=== PATIENT | male | born 1980 | race Caucasian/White ===

== ENCOUNTER 2016-06-28 16:59 | Emergency (ER) ==
[2016-06-28 17:12] VITALS: BP 145/87
--- NOTE | 2016-06-28 17:37 | PROVIDER DOCUMENTATION ---
HPI-Musculoskeletal Pain/Inj - GENERAL Source: patient - HX OF PRESENT ILLNESS-MUSKULOSKELTAL Quality of Pain: reports: aching Severity in ED: moderate Onset/Duration: 3 days ago Timing: still present Any recent injury?: No Locality of Occurance: Home Similar Symptoms Previously?: Yes Recently seen or treated by another doctor?: Yes <Italo Arnett - Last Filed: 06/28/16 17:33> <Domonique Viramontes - Last Filed: 06/28/16 17:50> - GENERAL Chief Complaint: General Adult Stated Complaint: MUSCLE SPASMS,BRUISING Time Seen by Provider: 06/28/16 17:34 - HX OF PRESENT ILLNESS-MUSKULOSKELTAL Nature of Presenting Problem: Reports left inner thigh cramps on Monday through monday went to ER in [place] [facility] were good reports this morning noticed left inner thigh ecchymosis reports looked at it and told him that it was just bruising no Blood clots were involved. Denies any trauma or injury. Takes tylenol and aspirin daily. (Italo Arnett) Review of Systems - Adult - REVIEW OF SYSTEMS - ADULT Constitutional: denies: chills, fever, fatique Eyes: reports: no symptoms reported Ears, Nose, Mouth & Throat: denies: ear pain, sinus problem, throat pain Cardiovascular: reports: no symptoms reported Respiratory: reports: no symptoms reported Gastrointestinal: reports: no symptoms reported Genitourinary: reports: no symptoms reported Musculoskeletal: reports: see HPI, muscle aches, other (ecchymosis left innter thigh). denies: joint pain, joint swelling Integumentary: reports: no symptoms reported Neurological: reports: no symptoms reported Psychiatric: reports: no symptoms reported Endocrine: reports: no symptoms reported Hematologic/Lymphatic: reports: no symptoms reported Allergic/Immunologic: reports: no symptoms reported All Other Systems: Reviewed and Negative <Italo Arnett - Last Filed: 06/28/16 17:33> Past History - Adult - PAST MEDICAL HISTORY-ADULT Review of Records: reports: Nursing Assessment Review, Medications Reviewed Major Childhood Illnesses: reports: denies history - IMMUNIZATION STATUS Childhood Immunizations: See Nurse Assessment Flu Vaccine: See Nurse Assessment - FAMILY HISTORY Family History: reviewed, not pertinent - SOCIAL HISTORY Smoking: cigarettes, greater than 1 pack/day Provider spent 3-5 mins advising pt. on dangers of tobacco.: Discussed manners to quit use, and f/u contacts for add'l counseling. Substance Use: none/never <Italo Arnett - Last Filed: 06/28/16 17:33> Physical Exam-Injury Related - Physical Exam-Injury Related Initial Vital Signs Reviewed: Yes General Appearance: appears well, alert, thin, anxious Eyes: PERRL/EOMI, pink conjunctivae Head, Ears, Nose, Mouth & Throat: normocephalic/atraumatic, moist mucous membranes Neck: non-tender, full range of motion, supple Respiratory: chest non-tender, lungs clear, normal breath sounds Cardiovascular: regular rate, rhythm, no edema Abdominal Exam: normal bowel sounds, non tender, soft Back Exam: normal inspection Extremity: normal gait, other (significant ecchymosis to left medial thigh from groin to knee that is nontender) Integumentary: warm/dry Neurologic: grossly normal, no motor/sensory deficits Psych/Mental Status: normal thought content, normal thought process - Glascow Coma Score Best Eye Response (Stephane): (4) open spontaneously Best Verbal Response ([place]): (5) oriented Best Motor Response ([place]): (6) obeys commands [place] Total: 15 <Domonique Viramontes - Last Filed: 06/28/16 17:50> Progress <Italo Arnett - Last Filed: 06/28/16 17:33> <Domonique Viramontes - Last Filed: 06/28/16 17:50> - PLAN OF CARE/RESULTS Progress/Plan/Lab Results: Vital Signs - 24 hr 06/28/16 17:10 Temperature 98.1 F Pulse Rate 112 H Respiratory 18 Rate Blood Pressure 145/87 O2 Sat by Pulse 100 Oximetry (Italo Arnett) Vital Signs Temp Pulse Resp BP Pulse Ox 06/28/16 17:10 98.1 F 112 H 18 145/87 100 No Known Allergies Allergy (Verified 06/28/16 17:12) No Home Medications 07/01/15 Pt has been seen 2x at [place] ER for same complaints. Had labwork that was normal. Presents to ER today for 2nd opinion. (Domonique Viramontes) Departure <Italo Arnett - Last Filed: 06/28/16 17:33> - Departure Time of Disposition Order: 17:47 Certified Medical Emergency: Emergent <Domonique Viramontes - Last Filed: 06/28/16 17:50> - Departure DIAGNOSIS: Traumatic ecchymosis of left thigh Qualifiers: Encounter type: initial encounter Qualified Code(s): S70.12XA - Contusion of left thigh, initial encounter Disposition: HOME 01 Condition: Good Additional Instructions: Apply cold compresses to area of pain several times per day. ED Follow Up Instructions: You have been treated by a care provider in the Emergency Department. These instructions are being provided to you so you can have an understanding of how to care for yourself upon discharge. Upon discharge from the Emergency Department, you are responsible for making arrangements for follow-up care by a physician of your choice. Take all prescribed medications as directed. Return to the Emergency Department immediately for any new or worsening symptoms. You may call the Physician Referral phone number at [phone] to obtain a list of Physicians who are taking new patients. Referrals: Iwona Valerio MD [STAFF PHYSICIAN] - None,PCP [Primary Care Provider] - Attestation - Scribe Verification/Attestation Scribe:: Italo Arnett Acting as Scribe for:: Domonique Viramontes Scribe documention review:: This chart was documented by a scribe and accurately reflects the service the provider performed and the decisions made by the provider. <Italo Arnett - Last Filed: 06/28/16 17:33> - Physician/ CARLOS EDUARDO Attestation Patient care was provided by Advanced Practice Provider:: Yes Advanced Practice Provider:: Domonique Viramontes Advanced Practice Provider documentation review:: The Mid-level provider documentation, treatment plan and medical decision making was reviewed by the physician who agrees with all treatment and medical decision making by the P. <Domonique Viramontes - Last Filed: 06/28/16 17:50> Physician Attestation
== END 2016-06-28 18:00 | disposition home or self-care (01) ==
LOC: P.ED 16:59
DX: S70.12XA Contusion of left thigh, initial encounter (principal); R25.2 Cramp and spasm; M79.1 Myalgia; F17.210 Nicotine dependence, cigarettes, uncomplicated; Z71.6 Tobacco abuse counseling
CPT/HCPCS: 99281